=== PATIENT | male | born 1995 | race African-American/Black ===

== ENCOUNTER 2020-02-18 02:40 | Emergency (ER) | payer OTHER ==
[~2020-02-18] VITALS: Ht 175.3 cm; Wt 75.0 kg
[2020-02-18 02:43] VITALS: TEMP 97.8
[2020-02-18] MEDS ORDERED: CRUTCHES MC (04:35)
[2020-02-18 04:45] VITALS: BP 112/70; PULSE 88
== END 2020-02-18 04:45 | disposition home or self-care (01) ==
LOC: COL.ER 02:40
DX: S06.0X9A Concussion with loss of consciousness of unspecified duration, initial encounter (principal); S02.2XXA Fracture of nasal bones, initial encounter for closed fracture; S01.21XA Laceration without foreign body of nose, initial encounter; M25.561 Pain in right knee; F17.210 Nicotine dependence, cigarettes, uncomplicated; Y04.2XXA Assault by strike against or bumped into by another person, initial encounter
CPT/HCPCS: J2270